=== PATIENT | male | born 2000 | race Caucasian/White ===

== ENCOUNTER 2022-04-30 03:52 | Emergency (ER) | payer OTHER ==
[2022-04-30] MEDS ORDERED: Midazolam HCl 2 mg/2 ml Vial ONE (04:03)
[2022-04-30 05:09] LABS: ALT (SGPT) 28 U/L (8-55); AST (SGOT) 21 U/L (5-34); Albumin 3.5 g/dL (3.5-5.0); Alkaline Phosphatase 50 U/L (40-110); Anion Gap 15 mmol/L (10-20); BUN (Urea Nitrogen) 11 mg/dL (8.9-20.6); Bilirubin, Total 0.2 mg/dL (0.2-1.2); Calc. Creatinine Clearance 0 mL/min (70-130); Calcium 7.9 mg/dL (7.8-10.44); Carbon Dioxide 19 mmol/L (22-29); Chloride 109 mmol/L (98-107); Estimated GFR 135; Globulin 2.3 g/dL (2.4-3.5); Glucose 98 mg/dL (70-105); Potassium 3.3 mmol/L (3.5-5.1); Protein, Total 5.8 g/dL (6.0-8.3); Sodium 140 mmol/L (136-145)
== END 2022-04-30 06:40 | disposition home or self-care (01) ==
LOC: CSHERS 03:52
DX: F10.129 Alcohol abuse with intoxication, unspecified (principal); E87.6 Hypokalemia
CPT/HCPCS: 36415; 80053; 93005; 96361; 96374; J2250